=== PATIENT | female | born 1985 | race Caucasian/White ===

== ENCOUNTER 2020-10-30 11:21 | Outpatient (CLI) | payer BC, SELFPAY ==
--- NOTE | ~2020-10-30 | XR_ITS ---
EXAMINATION: XR foot LT 2V EXAM DATE: 10/30/2020 11:45 INDICATION: No known recent injury provided at this time. Pain of the left foot. TECHNIQUE: Frontal and lateral projections of the left foot. There is no prior study for comparison . FINDINGS: Small left calcaneal posterior and inferior spurs. There are no bony erosions identified. There are no acute fractures or dislocations identified. There is no subcutaneous gas. The soft tis iker is unremarkable. There are no radiopaque foreign bodies. IMPRESSION: Small left calcaneal spurs. Reviewed, dictated and finalized at location A. VAULT CLERK IMPRESSION: Small left calcaneal spurs.
--- NOTE | ~2020-10-30 | XR_ITS ---
EXAMINATION: XR lumbar spine 2-3V EXAM DATE: 10/30/2020 11:45 INDICATION: Low back pain. TECHNIQUE: Lumber spine frontal, lateral, lateral L5-S1 projections for interpretation. There is no prior study for comparison. FINDINGS: Mild diffuse lumbar facet arthropathy. There is no spondylolysis. The vertebral bodies are aligned in the AP dimension. Vertebral body and disc heights are well-maintained. Sacrum, sacroili ac joints, sacral arcuate lines are intact. Paraspinal soft tissue is unremarkable. IMPRESSION: 1. Mild lumbar facet arthropathy. Reviewed, dictated and finalized at location A. RUCTIONAL CONSULTANT
[2020-10-30 12:11] LABS: Basophils Percent Auto 0.4 % (0.2-1.2); Eosinophils Absolute Auto 0.1 K/mm3 (0-0.3); Eosinophils Percent Auto 0.9 % (0-4.4); Hematocrit 44.5 % (37.0-47.0); Hemoglobin 14.5 g/dL (12.0-15.0); Immature Granulocyte Absolute 0.02 K/mm3 (0.00-0.031); Immature Granulocyte Percent A 0.3 % (0-0.5); Lymphocytes Absolute Auto 2.43 K/mm3 (0.9-3.2); Lymphocytes Percent Auto 31.2 % (18.3-44.2); Mean Corpuscular HGB Conc 32.6 g/dl (32-36); Mean Corpuscular Hemoglobin 28.3 pg (26-34); Mean Corpuscular Volume 86.7 fl (80-100); Monocytes Absolute Auto 0.4 K/mm3 (0.1-0.6); Monocytes Percent Auto 5.5 % (2.6-8.5); Neutrophils Absolute Auto 4.8 K/mm3 (1.3-6.7); Neutrophils Percent Auto 61.7 % (45.5-73.1); Platelet Count Result 286 k/mm3 (150-375); Red Blood Count 5.13 M/mm3 (4.2-5.4); Red Cell Distribution Width 13.7 % (11.5-14.5); White Blood Count 7.8 K/mm3 (4.5-10.0)
[2020-10-30 12:35] LABS: Alanine Aminotransferase 21 U/L (4-35); Albumin Level 3.9 g/dL (3.5-5.1); Alkaline Phosphatase 84 U/L (38-126); Anion Gap 6 mmol/L (8-16); Aspartate Amino Transferase 21 U/L (14-36); Bilirubin,Total 0.4 mg/dL (0.2-1.3); Blood Urea Nitrogen 13 mg/dL (7-17); Calcium 8.7 mg/dL (8.4-10.2); Carbon Dioxide 25 mmol/L (22-30); Chloride 109 mmol/L (98-107); Cholesterol 204 mg/dL (0-200); Estimated Glomerular Filt Rate > 60; Glucose 95 mg/dL (65-105); HDL Direct 45 mg/dL; Potassium 4.1 mmol/L (3.4-5.0); Sodium 140 mmol/L (137-145); Triglycerides 163 mg/dL (<150)
[2020-10-30 12:45] LABS: LDL Cholesterol Direct 116 mg/dL
[2020-10-30 13:19] LABS: Vitamin D 25 Hydroxy 16.7 ng/mL
== END 2020-10-30 11:22 | disposition home or self-care (01) ==
LOC: ANHIMG 11:27
PROVIDERS: PCP Family Medicine; Visit Provider Nurse Practitioner Family
DX: M79.672 Pain in left foot (principal); M54.5 Low back pain; R20.0 Anesthesia of skin; R20.2 Paresthesia of skin; Z13.220 Encounter for screening for lipoid disorders; R53.83 Other fatigue; Z83.2 Family history of diseases of the blood and blood-forming organs and certain disorders involving the immune mechanism; Z13.1 Encounter for screening for diabetes mellitus; Z68.42 Body mass index [BMI] 45.0-49.9, adult; E55.9 Vitamin D deficiency, unspecified; Z13.29 Encounter for screening for other suspected endocrine disorder; M12.88 Other specific arthropathies, not elsewhere classified, other specified site; M77.32 Calcaneal spur, left foot
CPT/HCPCS: 36415; 72100; 73620; 80053; 80061; 82306; 82607; 84443; 85025

== ENCOUNTER 2020-12-04 01:17 | Emergency (ER) | payer BC, SELFPAY ==
--- NOTE | ~2020-12-04 | XR_ITS ---
EXAMINATION: XR chest 2V DATE: 12/04/2020 01:52 INDICATION: Cough, fever, bodyaches. Nausea. TECHNIQUE: Frontal and lateral views of the chest were obtained. COMPARISON: Chest 2 views 05/24/2013, CT abdomen and pelvis 02/05/2019 FINDINGS: There is mild atelectasis in the lower lung zones. No pleural effusion or pneumothorax. The heart size is normal. IMPRESSION: 1. Mild atelectasis in the lower lung zones. Reviewed, dictated and finalized at location A.
[2020-12-04 01:21] VITALS: BP 127/78; PULSE 115; RESP 18; TEMP 37.2; O2SAT 99
[2020-12-04] MEDS: SODIUM CHLORIDE 0.9% IV 1,000 ML 999 ML IV CONT (01:51)
[2020-12-04] MEDS: ONDANSETRON INJ 4 MG/2 ML VIAL IV PUSH (01:52)
[2020-12-04 02:02] LABS: Basophils Percent Auto 0.1 % (0.2-1.2); Eosinophils Percent Auto 0.3 % (0-4.4); Hematocrit 45.9 % (37.0-47.0); Hemoglobin 14.9 g/dL (12.0-15.0); Immature Granulocyte Absolute 0.03 K/mm3 (0.00-0.031); Immature Granulocyte Percent A 0.3 % (0-0.5); Lymphocytes Absolute Auto 1.11 K/mm3 (0.9-3.2); Lymphocytes Percent Auto 10.7 % (18.3-44.2); Mean Corpuscular HGB Conc 32.5 g/dl (32-36); Mean Corpuscular Hemoglobin 27.7 pg (26-34); Mean Corpuscular Volume 85.5 fl (80-100); Mean Platelet Volume 9.8 fl (7.4-10.4); Monocytes Absolute Auto 0.5 K/mm3 (0.1-0.6); Monocytes Percent Auto 4.6 % (2.6-8.5); Neutrophils Absolute Auto 8.7 K/mm3 (1.3-6.7); Platelet Count Result 257 k/mm3 (150-375); Red Blood Count 5.37 M/mm3 (4.2-5.4); Red Cell Distribution Width 13.9 % (11.5-14.5); White Blood Count 10.3 K/mm3 (4.5-10.0)
--- NOTE | 2020-12-04 02:11 | ED.NAVMDI ---
HPI - Nausea/Vomiting/Diarrhea General Chief complaint: Nausea/Vomiting/Diarrhea Stated complaint: vomiting/diarrhea-bodyaches/fever Time Seen by Provider: 12/04/20 01:40 Source: patient Mode of arrival: ambulatory Limitations: no limitations History of Present Illness HPI Narrative: Patient is a 35-year-old female complaining of nausea, vomiting, diarrhea, chills and body aches that started yesterday. Patient describes her vomitus as nonbilious nonbloody. Patient describes her diarrhea as loose watery, nonbloody. Patient denies any chest pain, shortness of breath, abdominal pain or urinary symptoms. Related Data Allergies Allergy/AdvReac Type Severity Reaction Status Date / Time No Known Allergies Allergy Verified 12/04/20 01:18 Review of Systems Review of Systems: All systems reviewed & are unremarkable except as noted in HPI and below Constitutional: Constitutional: Denies body ache(s), Denies chills, Denies excessive sweating, Denies fatigue, Denies fever(s), Denies headache(s), Denies lethargy, Denies malaise, Denies weakness and Denies weight loss Eyes: Eyes: Denies blurry vision, Denies change in vision and Denies loss of vision ENT: Denies dizziness, Denies ear discharge, Denies headache(s), Denies lip swelling, Denies epistaxis, Denies nasal congestion, Denies neck pain, Denies throat swelling and Denies tongue swelling Cardiovascular: Cardiovascular: Denies chest pain, Denies chest pain at rest, Denies chest pain with activity, Denies diaphoresis, Denies rapid heart rate, Denies edema, Denies irregular heart rhythm, Denies lightheadedness, Denies palpitations, Denies dyspnea and Denies dyspnea on exertion Respiratory: Respiratory: Denies chest congestion, Denies cough, Denies hemoptysis, Denies dyspnea and Denies dyspnea on exertion Gastrointestinal: Gastrointestinal: Denies abdominal pain, Denies melena, Denies hematochezia and Denies hematemesis Musculoskeletal: Musculoskeletal: Denies abnormal gait, Denies deformity, Denies joint swelling, Denies limited range of motion, Denies neck pain and Denies numbness Neurologic: Denies Abnormal speech present, Denies abnormal gait, Denies confusion, Denies dizziness, Denies headache(s), Denies focal weakness, Denies loss of vision, Denies numbness, Denies Other visual disturbances, Denies Sensory deficit (Neuro) and Denies weakness Psychiatric: Psychiatric: Denies confusion, Denies depression, Denies auditory hallucinations, Denies homicidal ideation and Denies suicidal ideation Endocrine: Endocrine: Denies cold intolerance, Denies excessive sweating, Denies fatigue, Denies heat intolerance and Denies palpitations Hematologic/Lymphatic: Hematologic/Lymphatic: Denies easy bleeding and Denies easy bruising Allergic/Immunologic: Allergic/Immunologic: Denies lip swelling, Denies throat swelling and Denies tongue swelling PMFSH Past Medical History Medical History BMI 45.0-49.9, adult Tobacco abuse Surgical History Surgical History History of 2 sections Family History Family History Other Acute myocardial infarction Cerebrovascular accident Diabetes mellitus Heart disease Hypertension Social History Social History Smoking status: Current every day smoker Alcohol intake: current Exam Const: General: cooperative, healthy appearing, comfortable, no acute distress, well developed, alert and awake; No confusion Orientation/consciousness: oriented to person, oriented to place, oriented to time, patient oriented x3 and No confusion Limitations: no limitations HENMT: Head: normal to inspection, normocephalic and atraumatic Ears: hearing grossly normal bilaterally, TM normal on the right and TM normal on the left General nose exam:
[2020-12-04 02:16] VITALS: BP 150/107; PULSE 95; RESP 20; O2SAT 99
[2020-12-04 02:16] LABS: Alanine Aminotransferase 21 U/L (4-35); Alkaline Phosphatase 91 U/L (38-126); Anion Gap 7 mmol/L (8-16); Aspartate Amino Transferase 18 U/L (14-36); Bilirubin,Total 0.4 mg/dL (0.2-1.3); Blood Urea Nitrogen 13 mg/dL (7-17); Calcium 8.1 mg/dL (8.4-10.2); Carbon Dioxide 23 mmol/L (22-30); Chloride 106 mmol/L (98-107); Estimated CRCL calculation 159 ml/min; Estimated Glomerular Filt Rate > 60; Glucose 121 mg/dL (65-105); Potassium 3.4 mmol/L (3.4-5.0); Sodium 136 mmol/L (137-145)
[2020-12-04 02:17] LABS: Lactic Acid Reflex 0.7 mmol/L (0.7-2.1)
[2020-12-04 02:50] LABS: Add Urine Microscopic? YES; Appearance Urine Cloudy (Clear); Bacteria Urine Trace /hpf; Bilirubin Urine Negative (Negative); Blood Urine 2+ (Negative); Color Urine Yellow (Yellow); Glucose Urine UA Negative (Negative); Ketones Urine Trace mg/dL (Negative); Leukocyte Esterase Ur 3+ LEU/UL (Negative); Mucus Urine Rare /lpf; Nitrate Urine Negative (Negative); Protein Urine 2+ mg/dL (Negative); RBC Urine 21-50 /hpf (0-2); Specific Grav Ur 1.021 (1.001-1.035); Squamous Epithelial Cell Urine Many /hpf (Few); Urobilinogen Urine Negative mg/dL (<2.0); WBC Urine >75 /hpf
[2020-12-04] MEDS: KETOROLAC 30 MG/ML VIAL (*BKC) IV PUSH (02:59)
[2020-12-04 03:15] VITALS: BP 131/79; PULSE 90; RESP 20; O2SAT 98
== END 2020-12-04 03:17 | disposition home or self-care (01) ==
PROVIDERS: Emergency Provider Emergency Medicine; PCP Family Medicine
DX: K52.9 Noninfective gastroenteritis and colitis, unspecified (principal); F17.200 Nicotine dependence, unspecified, uncomplicated
CPT/HCPCS: 36415; 71046; 80053; 81001; 81025; 83605; 85025; 87077; 87086; 87088; 96374; 96375; 99284; J1885; J2405; J7030

== ENCOUNTER 2022-04-30 15:22 | Emergency (ER) | payer BC, SELFPAY ==
[2022-04-30] VITALS (15 sets, daily range): BP systolic 140–163; BP diastolic 78–102; PULSE 92–120; RESP 18–33; TEMP 36.6; O2SAT 95–99
--- NOTE | ~2022-04-30 | XR_ITS ---
EXAMINATION: XR chest 1V portable DATE: 04/30/2022 17:42 INDICATION: One week of cough. TECHNIQUE: frontal view of the chest was obtained. COMPARISON: Chest radiograph dated 12/14/2020 FINDINGS: The lungs are clear with no focal airspace opacities, pulmonary edema, pleural effusion or pneumothor ax. The cardiomediastinal silhouette is normal. Visualized bones and soft tissues are unremarkable. IMPRESSION: 1. No acute cardiopulmonary disease. Reviewed, dictated and finalized at location A.
--- NOTE | 2022-04-30 15:27 | ECG_ITS ---
Measurements Intervals [place] Rate: 111 P: 52 OR: 148 QRS: 62 QRSD: 95 T: 46 QT: 328 QTc: 447 Interpretive Statements SINUS TACHYCARDIA ABNORMAL ECG NO PREVIOUS ECG AVAILABLE FOR COMPARISON Electronically Signed On 04-30-2022 15:38:00 CDT by Pollo Campos D.O.
--- NOTE | 2022-04-30 17:28 | ED.URI ---
HPI - URI/Sore Throat General Chief Complaint: Upper Respiratory Infection Stated Complaint: URI s/sx x 1 week Time Seen by Provider: 04/30/22 17:28 Source: patient Mode of arrival: ambulatory Limitations: no limitations History of Present Illness HPI Narrative: Patient is a 36-year-old female presenting to the emergency department for evaluation of chest pain, cough, shortness of breath. Patient states that she has felt unwell over the past 5 days, with dry cough, frontal chest pain that is aching in nature. Patient reports associated shortness of breath without pleuritic pain. She denies hemoptysis. She denies leg swelling, calf pain, history of DVT or coagulopathy. She denies any radiation of the pain to the neck, jaw, shoulder. Patient reports fever of 101 Fahrenheit or higher as well as rhinorrhea and congestion. Patient has history of symptomatic COVID infection several months ago. She did not require hospitalization for this. Patient is vaccinated for COVID. Related Data Allergies Allergy/AdvReac Type Severity Reaction Status Date / Time No Known Allergies Allergy Verified 04/30/22 17:41 Review of Systems Review of Systems: CONSTITUTIONAL: Denies fever, chills, or sweats. EYES: Denies visual changes, redness, or discharge. ENT: Patient reports rhinorrhea, congestion CARDIOVASCULAR: Patient reports chest pain, palpitations, denies leg edema RESPIRATORY: Patient reports cough and shortness of breath GASTROINTESTINAL: Denies abdominal pain, nausea, vomiting, or diarrhea. GENITOURINARY: Denies dysuria or hematuria. SKIN: Denies rash or itching. MUSCULOSKELETAL: Denies back pain, joint pain, patient reports myalgias NEUROLOGIC: Denies headache, numbness, or weakness. [facility] Past Medical History Medical History BMI 45.0-49.9, adult Tobacco abuse Surgical History Surgical History History of 2 sections Family History Family History Other Acute myocardial infarction Cerebrovascular accident Diabetes mellitus Heart disease Hypertension Social History Social History Smoking status: Current every day smoker Alcohol intake: current Exam Narrative: GENERAL: Awake, alert, conversant HEAD: Normocephalic, atraumatic. EYES: PERRLA and EOMI. ENT: Nares clear, no rhinorrhea or epistaxis. Mucous membranes moist. NECK: Supple. CHEST: No respiratory distress, breathing even and non labored HEART: Tachycardic rate, sinus rhythm ABDOMEN: Obese, distended, non tender EXTREMITIES: Normal range of motion. No edema. SKIN: Warm, dry, no rash. NEURO:No focal deficits. Alert and oriented x3 Course Vital Signs Vital signs: Vital Signs Temperature 36.6 C 04/30/22 15:24 Pulse Rate 120 H 04/30/22 15:24 Respiratory Rate 18 04/30/22 15:24 Blood Pressure 147/102 H 04/30/22 15:24 Pulse Oximetry 99 04/30/22 15:24 Temperature 36.6 C 04/30/22 15:24 Pulse Rate 101 H 04/30/22 17:47 Respiratory Rate 21 H 04/30/22 17:47 Blood Pressure 163/94 H 04/30/22 17:47 Pulse Oximetry 98 04/30/22 17:47 MDM - URI/Sore Throat MDM Narrative Medical decision making narrative: Patient presenting to the emergency department for evaluation of cough, congestion, fevers. At the time of assessment, patient is tachycardic, no significant tachypnea, she is not hypoxic. Chest x-ray is clear. No significant leukocytosis. Patient is positive for COVID which explains her symptoms. D-dimer is not elevated thus CT is not indicated. Discussed Paxlovid with the patient, plan for discharge home with prescription. Pt then discharged home in stable condition. Differential Diagnosis Differential diagnosis: Likely upper respiratory infection, sinusitis, viral infection, bronchitis and pharyn
[2022-04-30 18:00] LABS: Basophils Percent Auto 0.2 % (0.2-1.2); Eosinophils Absolute Auto 0.2 K/mm3 (0-0.3); Hemoglobin 13.7 g/dL (12.0-15.0); Immature Granulocyte Absolute 0.02 K/mm3 (0.00-0.031); Immature Granulocyte Percent A 0.2 % (0-0.5); Lymphocytes Absolute Auto 1.85 K/mm3 (0.9-3.2); Lymphocytes Percent Auto 21.5 % (18.3-44.2); Mean Corpuscular HGB Conc 32.6 g/dl (32-36); Mean Corpuscular Hemoglobin 28.1 pg (26-34); Mean Corpuscular Volume 86.2 fl (80-100); Mean Platelet Volume 9.7 fl (7.4-10.4); Monocytes Absolute Auto 0.7 K/mm3 (0.1-0.6); Monocytes Percent Auto 7.7 % (2.6-8.5); Neutrophils Absolute Auto 5.9 K/mm3 (1.3-6.7); Neutrophils Percent Auto 68.4 % (45.5-73.1); Platelet Count Result 265 k/mm3 (150-375); Red Blood Count 4.87 M/mm3 (4.2-5.4); White Blood Count 8.6 K/mm3 (4.5-10.0)
[2022-04-30 18:10] LABS: INR 0.9; Prothrombin Time 11.7 Seconds (11.1-14.7)
[2022-04-30 18:11] LABS: Partial Thromboplastin Time 27.4 SECONDS (22.3-36.8)
[2022-04-30 18:20] LABS: Alanine Aminotransferase 21 U/L (6-35); Alkaline Phosphatase 90 U/L (38-126); Anion Gap 10 mmol/L (8-16); Aspartate Amino Transferase 27 U/L (14-36); Bilirubin,Total 0.4 mg/dL (0.2-1.3); Blood Urea Nitrogen 22 mg/dL (7-17); Calcium 8.3 mg/dL (8.4-10.2); Carbon Dioxide 25 mmol/L (22-30); Chloride 106 mmol/L (98-107); Estimated CRCL calculation 134 ml/min; Estimated Glomerular Filt Rate > 60; Glucose 112 mg/dL (65-110); Potassium 3.7 mmol/L (3.4-5.0); Sodium 141 mmol/L (137-145)
[2022-04-30 18:31] LABS: Troponin I < 0.012 ng/mL (0.000-0.034)
[2022-04-30 18:38] LABS: SARS-CoV-2 RNA PCR Positive
[2022-04-30] MEDS: ACETAMINOPHEN 500 MG TABLET 1000 MG PO (18:39)
[2022-04-30] MEDS: SODIUM CHLORIDE 0.9% IV 1,000 ML 999 ML IV CONT (18:39)
[2022-04-30 18:54] LABS: D Dimer 0.28 ug/mL (<0.48)
== END 2022-04-30 19:27 | disposition home or self-care (01) ==
PROVIDERS: Emergency Medicine; Emergency Provider Emergency Medicine; PCP Family Medicine
DX: U07.1 COVID-19 (principal); Z86.16 Personal history of COVID-19; F17.200 Nicotine dependence, unspecified, uncomplicated; R00.0 Tachycardia, unspecified
CPT/HCPCS: 36415; 71045; 80053; 84484; 85025; 85380; 85610; 85730; 93005; 99284; A9270; C9803; J7030; U0003; U0005

== ENCOUNTER 2022-05-18 16:17 | Outpatient (CLI) | payer BC, SELFPAY ==
--- NOTE | ~2022-05-18 | MR_ITS ---
. EXAMINATION: MR ankle RT wo con DATE: 05/18/2022 17:03 INDICATION: Posterior tibial tendinitis. Right foot pain and swelling. TECHNIQUE: Magnetic resonance imaging (MRI) of the right ankle was performed without intravenous cont rast. Sequences included sagittal PD-weighted FS FSE, sagittal PD-weighted FSE, coronal PD-weighted F S FSE, coronal PD-weighted FSE, axial PD-weighted FS FSE, and axial PD-weighted FSE. COMPARISON: None. FINDINGS: Medial ankle ligaments: The superficial and deep components of the deltoid ligament are normal. Lateral ankle ligaments: The anterior and posterior talofibular ligaments, calcaneofibular ligament, and anterior and posterio r tibiofibular ligaments are normal. Tendons: There is a longitudinal split tear of peroneus brevis tendon. There is mild peroneus longus tendinopa thy. The anterior ankle tendons are normal. There is a partial tear of distal posterior tibial tendon characterized by enlargement and increased signal intensity. There is mild tenosynovitis involving p osterior tibial tendon. Achilles tendon is normal. Plantar fascia: There is thickening and increased signal involving the central band of plantar fascia, consistent wit h fasciitis. There is an enthesophyte at the calcaneal attachment. Bones/other: Bone alignment is normal. There is mild osteoarthritis of some of the midfoot joints. Fluid: There are small ankle and subtalar joint effusions. IMPRESSION: 1. Partial tear of posterior tibial tendon distally. 2. Plantar fasciitis. 3. Longitudinal split tear of peroneus brevis tendon. Reviewed, dictated and finalized at location A.
== END 2022-05-18 16:18 ==
LOC: MICIMG 16:18
PROVIDERS: PCP Podiatrist Foot & Ankle Surgery; Visit Provider Podiatrist Foot & Ankle Surgery
DX: M76.821 Posterior tibial tendinitis, right leg (principal); S86.311A Strain of muscle(s) and tendon(s) of peroneal muscle group at lower leg level, right leg, initial encounter; M72.2 Plantar fascial fibromatosis; S86.811A Strain of other muscle(s) and tendon(s) at lower leg level, right leg, initial encounter
CPT/HCPCS: 73721

== ENCOUNTER 2022-08-26 07:09 | Emergency (ER) | payer BC, SELFPAY ==
[2022-08-26] VITALS (13 sets, daily range): BP systolic 135–153; BP diastolic 71–99; PULSE 97–110; RESP 12–20; TEMP 36.8; O2SAT 97–100
--- NOTE | ~2022-08-26 | CT_ITS ---
Clinical Indication: Shortness of breath CT Scan of the Chest with Contrast: Technique: Contiguous sections were acquired throughout the chest after intravenous administration of 100 cc of Omnipaque 350. Coronal maximum intensity projection 3-D reconstructions were created by yady mckeon technologist. Dose reduction technique was used on this scan by utilizing automated exposure contr ol and iterative reconstruction technique. The dose-length product (DLP) was 831.82 mGy-cm. Findings: There is no evidence of any significant mediastinal, hilar or axillary lymphadenopathy. There is no f illing defect in the pulmonary arterial tree to suggest pulmonary embolus. There is no evidence of ao rtic dissection or aneurysm. There is no evidence of pleural or pericardial effusion. The lungs are clear. No pulmonary nodules or infiltrates are noted. Images through the upper abdomen reveal no abnormalities. Impression: No evidence of pulmonary embolus, aortic dissection, or aortic aneurysm. Clear lungs. Reviewed, dictated and finalized at [facility]. ATING TABLE ASSEMBLER Impression: No evidence of pulmonary embolus, aortic dissection, or aortic aneurysm. Clear lungs.
--- NOTE | ~2022-08-26 | XR_ITS ---
Clinical Indication: Cough PA and lateral views of the chest: Comparison: 04/30/2022 Findings: The lungs are clear, without evidence of focal consolidation or pleural effusion. Cardiome diastinal silhouette is within normal limits. Bones and soft tissues are unremarkable. Impression: Normal chest. Reviewed, dictated and finalized at location . ER HELPER Impression: Normal chest.
--- NOTE | 2022-08-26 07:31 | ECG_ITS ---
Measurements Intervals [place] Rate: 93 P: 24 MT: 173 QRS: 34 QRSD: 97 T: 31 QT: 334 QTc: 416 Interpretive Statements SINUS RHYTHM POSSIBLE LEFT ATRIAL ENLARGEMENT [-0.1mV P-WAVE IN V1/V2] COMPARED TO ECG 04/30/2022 15:32:57 SINUS RHYTHM NOW PRESENT Electronically Signed On 08-26-2022 13:19:11 JEWELLERY DESIGNER by Laz Del Rosario M.D.
--- NOTE | 2022-08-26 07:43 | ED.URI ---
HPI - URI/Sore Throat General Chief Complaint: Upper Respiratory Infection Stated Complaint: sinus congestion facial swelling since wednesday Time Seen by Provider: 08/26/22 07:16 Source: patient and RN notes reviewed Mode of arrival: ambulatory Limitations: no limitations History of Present Illness HPI Narrative: This is a 36 year old female who presents for evaluation of URI symptoms. Patient reports that starting on Wednesday she developed sinus congestion and cough. She reports bilateral facial pain. She also reports purulent discharge that is yellowish, green. She reports cough and subjective fever. She states her thermometer does not work. She reports her symptoms are worsening and she is unable to catch her breath. She denies chest pain, vomiting or diarrhea. 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 She has not take any medications since last night at 11 pm. Related Data Allergies Allergy/AdvReac Type Severity Reaction Status Date / Time No Known Allergies Allergy Verified 04/30/22 17:41 Review of Systems Constitutional: Constitutional: Denies weakness ENT: Reports nasal congestion and Reports sore throat Cardiovascular: Cardiovascular: Denies syncope, Denies rapid heart rate, Denies irregular heart rhythm, Denies leg edema and Reports dyspnea Respiratory: Respiratory: Denies chest congestion, Reports cough, Denies hemoptysis, Denies excessive phlegm production and Reports dyspnea Gastrointestinal: Gastrointestinal: Denies abdominal pain, Denies hematochezia, Denies diarrhea and Denies vomiting Genitourinary: Genitourinary: Denies hematuria and Denies dysuria Musculoskeletal: Musculoskeletal: Denies joint swelling, Denies loss of height and Denies muscle weakness Neurologic: Denies syncope, Denies focal weakness and Denies weakness PMFSH Past Medical History Medical History BMI 45.0-49.9, adult Tobacco abuse Surgical History Surgical History History of 2 sections Family History Family History Other Acute myocardial infarction Cerebrovascular accident Diabetes mellitus Heart disease Hypertension Social History Social History Smoking status: Current every day smoker Alcohol intake: current Exam Narrative: GENERAL: , well-nourished, and in no acute distress. HEAD: Normocephalic, atraumatic EYES: PERRLA and EOMI, conjunctiva clear without discharge THROAT:Mucous membranes moist, Oropharynx normal without erythema, exudate, peritonsillar swelling or fluctuance NECK: Supple, without lymphadenopathy or mass RESPIRATORY: No respiratory distress, Airway patent, Respirations non-labored, Clear to auscultation without rales, rhonchi or wheeze HEART: tachycardic rate and regular rhythm. No murmur heard. Normal peripheral pulses. ABDOMEN: Soft, nontender, nondistended, normal active bowel sounds. No masses. No rebound or guarding, No organomegaly. EXTREMITIES: No edema, normal strength with full range of motion. SKIN: Warm, dry, normal color without rash NEURO: Alert and oriented x3. CN 2-12 grossly intact. No focal deficits. PSYCH: Normal mood and affect. HENMT: Face/Nose/Sinus: Nasal discharge present Face and sinus: sinus tenderness maxillary (bilateral) Neuro: Speech: No Abnormal speech present Course Reevaluation(s) Reevaluation #1: I discussed with patient that labs show no significant abnormality other than elevated wbc. She was complaining of sob, elevated d dimer, tachycardia so CT was performed it was unremarkable. COvid and flu are also negative. Given that patient has had 3-4 days of purulent nasal discharge and facial pain for 3 days as well, I will start on antibiotics for sinusitis. Date: 08/26/22 Time: 09:25 Vital
[2022-08-26] MEDS: SODIUM CHLORIDE 0.9% IV 1,000 ML 999 ML IV CONT (08:01)
[2022-08-26 08:03] LABS: Alveolar/Arterial O2 Gradient 26.4 mmHg; Base Excess ABG 0.6 mEq/l (+/-2.0); Carboxyhemoglobin 1.7 % THb (0-2.0); Fractional Inspired Oxygen 21 %; HCO3 ABG 23.7 mEq/l (22.0-26.0); Methemoglobin ABG 0.4 %THb (0-1.5); Oxygen Content ABG 19.8 %vol (16.0-22.0); Oxygen Saturation ABG 96.8 % (95.0-100.0); Oxyhemoglobin 94.3 % THb (90.0-100.0); PCO2 ABG 33.8 mmHg (35.0-45.0); PO2 ABG 82.9 mmHg (80.0-100.0); PO2 FiO2 Ratio Arterial Blood 3.95 %; Reduced Hemoglobin 3.6 %THb (0-5.0); Total Hemoglobin 14.9 g/dL (12.0-18.0); pH ABG 7.464 (7.350-7.450)
[2022-08-26 08:04] LABS: Site Drawn LEFT RADIAL
[2022-08-26 08:05] LABS: Device ROOM AIR; Modified Allen's Test Pass
[2022-08-26 08:12] LABS: Basophils Percent Auto 0.2 % (0.2-1.2); Eosinophils Percent Auto 0.3 % (0-4.4); Hematocrit 45.1 % (37.0-47.0); Hemoglobin 14.4 g/dL (12.0-15.0); Immature Granulocyte Absolute 0.04 K/mm3 (0.00-0.031); Immature Granulocyte Percent A 0.3 % (0-0.5); Lymphocytes Absolute Auto 1.81 K/mm3 (0.9-3.2); Mean Corpuscular HGB Conc 31.9 g/dl (32-36); Mean Corpuscular Hemoglobin 27.9 pg (26-34); Mean Corpuscular Volume 87.2 fl (80-100); Mean Platelet Volume 10.2 fl (7.4-10.4); Monocytes Absolute Auto 0.7 K/mm3 (0.1-0.6); Monocytes Percent Auto 5.4 % (2.6-8.5); Neutrophils Absolute Auto 10.3 K/mm3 (1.3-6.7); Neutrophils Percent Auto 79.8 % (45.5-73.1); Platelet Count Result 300 k/mm3 (150-375); Red Blood Count 5.17 M/mm3 (4.2-5.4); Red Cell Distribution Width 13.6 % (11.5-14.5); White Blood Count 12.9 K/mm3 (4.5-10.0)
[2022-08-26 08:15] LABS: Alanine Aminotransferase 21 U/L (6-35); Albumin Level 4.2 g/dL (3.5-5.1); Alkaline Phosphatase 101 U/L (38-126); Anion Gap 7 mmol/L (8-16); Aspartate Amino Transferase 19 U/L (14-36); Bilirubin,Total 0.4 mg/dL (0.2-1.3); Blood Urea Nitrogen 12 mg/dL (7-17); Calcium 8.5 mg/dL (8.4-10.2); Carbon Dioxide 24 mmol/L (22-30); Chloride 103 mmol/L (98-107); Estimated CRCL calculation 158 ml/min; Estimated Glomerular Filt Rate > 60; Glucose 115 mg/dL (65-110); Lactic Acid Reflex 0.9 mmol/L (0.7-2.0); Potassium 3.9 mmol/L (3.4-5.0); Sodium 134 mmol/L (137-145)
[2022-08-26 08:19] LABS: Prothrombin Time 13.1 Seconds (11.1-14.7)
[2022-08-26 08:20] LABS: Partial Thromboplastin Time 29.8 SECONDS (22.3-36.8)
[2022-08-26 08:23] LABS: D Dimer 0.64 ug/mL (<0.48)
[2022-08-26 08:26] LABS: Troponin I < 0.012 ng/mL (0.000-0.034)
[2022-08-26 08:39] LABS: Strep Group A RT-PCR NOT DETECTED (Negative)
[2022-08-26 08:46] LABS: Influenza A QL RT-PCR Negative (Negative); Influenza B QL RT-PCR Negative (Negative); SARS-CoV-2 RNA PCR Negative
== END 2022-08-26 09:45 | disposition home or self-care (01) ==
PROVIDERS: Emergency Provider General Practice; PCP Family Medicine
DX: J06.9 Acute upper respiratory infection, unspecified (principal); Z20.822 Contact with and (suspected) exposure to COVID-19; F17.200 Nicotine dependence, unspecified, uncomplicated; R94.31 Abnormal electrocardiogram [ECG] [EKG]
CPT/HCPCS: 36415; 36600; 71046; 71275; 80053; 82375; 82805; 83050; 83605; 84484; 85025; 85380; 85610; 85730; 87636; 87651; 93005; 96360; 99284; J7030; Q9967

== ENCOUNTER 2023-09-07 15:02 | Emergency (ER) | payer BC, SELFPAY ==
[2023-09-07] VITALS (13 sets, daily range): BP systolic 152–160; BP diastolic 92–101; PULSE 72–94; RESP 11–22; TEMP 36.5; O2SAT 92–100
--- NOTE | ~2023-09-07 | XR_ITS ---
EXAMINATION: XR ribs RT 2V w CXR 2V Exam Date/Time: 09/07/2023 19:26 GASOLINE LOCOMOTIVE CRANE OPERATOR HISTORY: right rib/chest [id number] Comparison: 08/26/2022. RESULT: Lines, tubes, and devices: None. Lungs and pleura: Clear. Cardiothymic silhouette: Stable. Other: No acute osseous or upper abdominal finding. IMPRESSION: No acute cardiopulmonary process. No acute osseous finding in the right ribs. Reviewed, dictated and finalized at location K. LINE LOCOMOTIVE CRANE OPERATOR
--- NOTE | ~2023-09-07 | US_ITS ---
EXAMINATION: US abdomen limited DATE: 09/07/2023 16:53 INDICATION: Right upper quadrant abdominal pain. TECHNIQUE: Multiple grayscale and Doppler ultrasound images of the abdomen were obtained. COMPARISON: CT abdomen and pelvis 02/05/2019 FINDINGS: The pancreas is obscured by bowel gas. The liver is normal without focal lesion. There is n ormal flow in main portal vein. The gallbladder is normal in size. No gallstones or gallbladder wall thickening. There was a positive sonographic [place] sign. The common duct is normal and measures 5 mm . IMPRESSION: 1. Normal right upper quadrant ultrasound. No abnormal correlate for the positive sonographic [place] sign. Reviewed, dictated and finalized at location A. AMATION SUPERVISOR IMPRESSION: 1. Normal right upper quadrant ultrasound. No abnormal correlate for the positi ve sonographic [place] sign.
[2023-09-07 16:08] LABS: Basophils Percent Auto 0.3 % (0.2-1.2); Eosinophils Absolute Auto 0.1 K/mm3 (0-0.3); Eosinophils Percent Auto 0.8 % (0-4.4); Hematocrit 44.8 % (37.0-47.0); Hemoglobin 14.6 g/dL (12.0-15.0); Immature Granulocyte Absolute 0.03 K/mm3 (0.00-0.031); Immature Granulocyte Percent A 0.3 % (0-0.5); Lymphocytes Absolute Auto 2.74 K/mm3 (0.9-3.2); Lymphocytes Percent Auto 29.7 % (18.3-44.2); Mean Corpuscular HGB Conc 32.6 g/dl (32-36); Mean Corpuscular Hemoglobin 28.1 pg (26-34); Mean Corpuscular Volume 86.2 fl (80-100); Mean Platelet Volume 10.5 fl (7.4-10.4); Monocytes Absolute Auto 0.5 K/mm3 (0.1-0.6); Monocytes Percent Auto 5.7 % (2.6-8.5); Neutrophils Absolute Auto 5.8 K/mm3 (1.3-6.7); Neutrophils Percent Auto 63.2 % (45.5-73.1); Platelet Count Result 283 k/mm3 (150-375); Red Cell Distribution Width 13.4 % (11.5-14.5); White Blood Count 9.2 K/mm3 (4.5-10.0)
[2023-09-07 16:14] LABS: Alanine Aminotransferase 21 U/L (6-35); Albumin Level 4.2 g/dL (3.5-5.1); Alkaline Phosphatase 88 U/L (38-126); Anion Gap 7 mmol/L (8-16); Aspartate Amino Transferase 27 U/L (14-36); Bilirubin,Total 0.7 mg/dL (0.2-1.3); Blood Urea Nitrogen 16 mg/dL (7-17); Carbon Dioxide 26 mmol/L (22-30); Chloride 107 mmol/L (98-107); Estimated CRCL calculation 154 ml/min; Estimated Glomerular Filt Rate > 60; Glucose 86 mg/dL (65-110); Lipase 74 U/L (23-300); Potassium 3.4 mmol/L (3.4-5.0); Sodium 140 mmol/L (137-145)
--- NOTE | 2023-09-07 16:19 | ED.ABDPAIN ---
HPI - Abdominal Pain General Chief Complaint: Abdominal Pain <CARLOS ENRIQUE Kennedy Last Filed: 09/07/23 16:25> Stated Complaint: RUQ pain <CARLOS ENRIQUE Kennedy Last Filed: 09/07/23 16:25> Time Seen by Provider: 09/07/23 18:35 <CARLOS ENRIQUE Kennedy Last Filed: 09/07/23 16:25> Source: patient <CARLOS ENRIQUE Kennedy Last Filed: 09/07/23 16:25> Mode of arrival: ambulatory <CARLOS ENRIQUE Kennedy Filed: 09/07/23 16:25> Limitations: no limitations <CARLOS ENRIQUE Kennedy Last Filed: 09/07/23 16:25> History of Present Illness HPI narrative: Patient is a 38-year-old female who presents the ED with report of right-sided abdominal and chest pain. Patient reports she has had pain in her right-sided abdomen/chest radiating around to her right mid back for the last 2-3 days. Pain has been constant. Worse with any type of movement. Aggravated with taking deep breaths. No aggravation with eating. Patient does report recent COVID-19 infection and reports cough related to COVID. She denies feeling short of breath. Denies nausea, vomiting, diarrhea, constipation, urinary complaints. Denies recent fevers. No history of blood clots. <CARLOS ENRIQUE Kennedy Last Filed: 09/07/23 16:25> Related Data Allergies/Adverse Reactions: Allergies Allergy/AdvReac Type Severity Reaction Status Date / Time No Known Allergies Allergy Verified 12/11/22 09:59 <CARLOS ENRIQUE Kennedy Last Filed: 09/07/23 16:25> Review of Systems Review of Systems: CONSTITUTIONAL: Denies fever, chills, or sweats. CARDIOVASCULAR: See HPI.. RESPIRATORY: See HPI. GASTROINTESTINAL: See HPI. GENITOURINARY: Denies dysuria or hematuria. MUSCULOSKELETAL: See HPI. NEUROLOGIC: Denies headache, dizziness, numbness, or weakness. <CARLOS ENRIQUE Kennedy Last Filed: 09/07/23 16:25> All systems reviewed & are unremarkable except as noted in HPI and below <Maryse Carrillo PA-C - Last Filed: 09/07/23 16:25> [facility] Past Medical History Medical History: Medical History BMI 45.0-49.9, adult Tobacco abuse URI (upper respiratory infection) <Maryse Carrillo PA-C - Last Filed: 09/07/23 16:25> Surgical History Surgical History: Surgical History History of 2 sections <Maryse Carrillo PA-C - Last Filed: 09/07/23 16:25> Family History Family History: Family History Other Acute myocardial infarction Cerebrovascular accident Diabetes mellitus Heart disease Hypertension <Maryse Carrillo PA-C - Last Filed: 09/07/23 16:25> Social History Social History: Social History Smoking status: Current every day smoker Alcohol intake: current <Maryse Carrillo PA-C - Last Filed: 09/07/23 16:25> Exam Narrative: GENERAL: Uncomfortable appearing, morbidly obese with BMI of 47.0, non-toxic, in mild acute distress due to pain. HEAD: Normocephalic, atraumatic. RESPIRATORY: Airway patent, respirations nonlabored. Clear to auscultation bilaterally, no rales, rhonchi, wheezing. CARDIOVASCULAR: Regular rate and rhythm. ABDOMINAL: Soft, moderate tenderness in right upper quadrant & epigastric region, nondistended. Normoactive BS. MUSCULOSKELETAL: Moves all extremities. No gross deformities. Patient holding R side with any movement. SKIN: Warm, dry, normal color. NEURO: A&O X3. Speech clear. Cranial nerves II-XII grossly intact. Steady gait. No ataxic movements. PSYCHIATRIC: Tearful. Normal interaction. <Maryse Carrillo PA-C - Last Filed: 09/07/23 16:25> GENERAL: Uncomfortable appearing, morbidly obese with BMI of 47.0, non-toxic, in mild acute distress due to doreen
--- NOTE | 2023-09-07 16:20 | ECG_ITS ---
Measurements Intervals [place] Rate: 91 P: 35 [place]: 181 QRS: 21 QRSD: 106 T: 48 QT: 343 QTc: 424 Interpretive Statements SINUS RHYTHM BORDERLINE R WAVE PROGRESSION, ANTERIOR LEADS BASELINE ARTIFACT- I, III, AVR, AVL BORDERLINE ECG COMPARED TO ECG 08/26/2022 07:53:26 NO SIGNIFICANT CHANGES Electronically Signed On 09-07-2023 17:07:06 CROSSCUTTER ROLLED GLASS by Pollo Campos D.O.
--- NOTE | 2023-09-07 16:21 | PC.NURSE ---
called lab and added on d-dimer and troponin
--- NOTE | 2023-09-07 16:26 | PC.NURSE ---
pt taken to ultrasound at this time.
[2023-09-07] MEDS: CYCLOBENZAPRINE HCL 5 MG TABLET PO (16:48)
[2023-09-07] MEDS: ACETAMINOPHEN 500 MG TABLET 1000 MG PO (16:48)
[2023-09-07 17:03] LABS: Troponin I < 0.012 ng/mL (0.000-0.034)
[2023-09-07 19:51] LABS: Add Urine Microscopic? YES
[2023-09-07 19:52] LABS: Bacteria Urine Trace /hpf; Mucus Urine Few /lpf
[2023-09-07 19:53] LABS: Appearance Urine Slightly Cloudy (Clear); Color Urine Yellow (Yellow); Squamous Epithelial Cell Urine Few /hpf (Few); pH Urine 5.5 (5.0-9.0)
[2023-09-07 19:54] LABS: Bilirubin Urine Negative (Negative); Blood Urine 2+ (Negative); Glucose Urine UA Negative (Negative); Ketones Urine 1+ mg/dL (Negative); Nitrate Urine Negative (Negative); Protein Urine Negative (Negative); Specific Grav Ur >= 1.030 (1.001-1.035); Urobilinogen Urine 0.2 mg/dL (<2.0)
[2023-09-07 19:55] LABS: Leukocyte Esterase Ur Trace LEU/UL (Negative)
[2023-09-07] MEDS: KETOROLAC 30 MG/ML VIAL (*BKC) IM (20:20)
--- NOTE | 2023-09-07 20:21 | ECG_ITS ---
Measurements Intervals [place] Rate: 69 P: 28 [place]: 164 QRS: 28 QRSD: 109 T: 44 QT: 408 QTc: 439 Interpretive Statements SINUS RHYTHM LOW QRS VOLTAGE IN PRECORDIAL LEADS BASELINE WANDER- AVR, V4 BORDERLINE ECG COMPARED TO ECG 09/07/2023 16:54:17 NO SIGNIFICANT CHANGES Electronically Signed On 09-08-2023 5:21:18 OIL WINTERIZER by Pollo Campos D.O.
[2023-09-07 20:40] LABS: Troponin I < 0.012 ng/mL (0.000-0.034)
== END 2023-09-07 21:10 | disposition home or self-care (01) ==
PROVIDERS: Emergency Medicine; Physician Assistant; Emergency Provider Physician Assistant; PCP Family Medicine
DX: R07.81 Pleurodynia (principal); F17.210 Nicotine dependence, cigarettes, uncomplicated
CPT/HCPCS: 36415; 71046; 71100; 76705; 80053; 81001; 81025; 83690; 84484; 85025; 85380; 93005; 96372; 99284; A9270; J1885